=== PATIENT | female | born 1995 | race Two or more races ===

== ENCOUNTER 2025-01-18 15:27 | Outpatient (CLI) | payer OTHER | END 2025-01-18 15:38 | disposition home or self-care (01) | LOC: RAD 15:27 | PROVIDERS: ATTEND General Practice | DX: M54.50 Low back pain, unspecified (principal); W19.XXXA Unspecified fall, initial encounter; X58.XXXA Exposure to other specified factors, initial encounter; Y93.9 Activity, unspecified; Y92.9 Unspecified place or not applicable; Y99.9 Unspecified external cause status ==